=== PATIENT | male | born 2000 | race African-American/Black ===

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

== ENCOUNTER 2021-09-14 17:30 | Emergency (ER) | payer MEDICAID, OTHER ==
[~2021-09-14] VITALS: Ht 167.6 cm; Wt 87.0 kg
[2021-09-14 17:40] VITALS: BP 136/87
[2021-09-14] MEDS ORDERED: MAGNESIUM/ALUMINUM HYDROXIDE/SIMETHICONE 30ML UDC PO STA (18:28)
[2021-09-14] MEDS ORDERED: ACETAMINOPHEN 325MG TABLET PO STA (18:28)
[2021-09-14] MEDS ORDERED: FAMOTIDINE 20MG TABLET PO ONE (18:30)
[2021-09-14] MEDS ORDERED: DIPHENHYDRAMINE 12.5MG/5ML UDC PO ONE (20:00)
== END 2021-09-14 20:07 | disposition home or self-care (01) ==
LOC: ER 17:30
DX: R10.9 Unspecified abdominal pain (principal); Z98.890 Other specified postprocedural states
CPT/HCPCS: 99284; Q0163